=== PATIENT | female | born 1940 | race Caucasian/White ===

== ENCOUNTER 2016-12-24 05:24 | Observation (INO) | payer OTHER ==
[~2016-12-24] VITALS: Ht 162.6 cm; Wt 88.6 kg
[~2016-12-24 05:24] MED LIST: ASPI-110 PO; ATOR20TA15 PO; BENZ1CAP8 PO; CHOL5000 PO; DONE5TAB7 PO; GABA600T PO; GLIM4TAB PO; KRIL500C2 PO; LEVO150T7 PO; LOSA100T PO; MEMA1TAB PO; METF500T PO; NAPR1TAB98 PO; NAPR500 PO; OMEP20TA PO; OXYB5TAB10 PO; TRAZ100T6 PO; VITA10002 PO; VITA150T PO
[2016-12-24] MEDS ORDERED: SODIUM CHLORID 0.9% 500 ML IV PRN (05:45)
[2016-12-24] MEDS ORDERED: ceFAZolin 2 GM PREMIX 50 ML IV SCH (05:45)
[2016-12-24] MEDS ORDERED: METOPROLOL TARTRATE 25 MG TAB PO PRN (05:45)
[2016-12-24] MEDS ORDERED: INSULIN HUMAN REGULAR 1,000 UNITS/10 ML VIAL SQ PRN (05:45)
[2016-12-24] MEDS ORDERED: LACTATED RINGER'S 1000 ML IV PRN (05:45)
[2016-12-24] MEDS ORDERED: CHLORHEXIDINE GLUCONATE 2 % 1 PACK (2 CLOTHS) TOPICAL PRN (05:45)
[2016-12-24 06:22] VITALS: BP 146/73; PULSE 79; RESP 20; TEMP 97.6; O2SAT 93
[2016-12-24] MEDS ORDERED: HEPARIN SODIUM - SQ 10,000 UNITS/ML VIAL SQ SCH (06:30)
[2016-12-24] MEDS ORDERED: ACETAMINOPHEN 1000 MG/100 ML VIAL IV ONE (07:12)
[2016-12-24] MEDS ORDERED: ARTIFICIAL TEARS OPTH OINT 3.5 APPLIC/3.5 GM TUBO ONE (07:12)
[2016-12-24] MEDS ORDERED: HYDROmorphone HCL PF 2 MG/ML VIAL ONE (07:12)
[2016-12-24] MEDS ORDERED: SUGAMMADEX SODIUM 200 MG/2 ML VIAL IV PUSH ONE ×2 (07:12)
[2016-12-24] MEDS ORDERED: DEXAMETHASONE SOD PHOS 4 MG/ML VIAL ONE (07:13)
[2016-12-24] MEDS ORDERED: fentaNYL CITRATE 250 MCG/5 ML AMP ONE ×2 (07:13→11:00)
[2016-12-24] MEDS ORDERED: MIDAZOLAM HCL 2 MG/2 ML VIAL ONE (07:13)
[2016-12-24] MEDS ORDERED: LIDOCAINE 1%/EPINEPHrine 1:100,000 SOLN 30 ML VIAL INFIL ONE (08:00)
[2016-12-24] MEDS ORDERED: METHYLENE BLUE 10 MG/ML VIAL PO ONE (09:44)
[2016-12-24] MEDS ORDERED: NAPROXEN SODIUM PO PRN (10:45)
[2016-12-24] MEDS ORDERED: oxyCODONE/ACETAMINOPHEN 5 MG/325 MG TAB PO PRN (10:45)
[2016-12-24] MEDS ORDERED: ONDANSETRON HCL 4 MG/2 ML VIAL IVP PRN (10:45)
[2016-12-24] MEDS ORDERED: DIPHENHYDRAMINE PO PRN (10:45)
[2016-12-24] MEDS ORDERED: diphenhydrAMINE HCL 25 MG CAP PO PRN (10:45)
[2016-12-24] MEDS ORDERED: LORazepam 0.5 MG TAB PO PRN (10:45)
[2016-12-24] MEDS ORDERED: BENZONATATE 100 MG CAP PO PRN (10:45)
[2016-12-24] MEDS ORDERED: SODIUM CHLORIDE 0.9% FLUSH 10 ML FLUSH IV FLUSH PRN (10:45)
[2016-12-24] MEDS ORDERED: DO NOT ADM ANY ANTICOAGULANT DRUGS PRN (10:46)
[2016-12-24] MEDS: INSULIN NovoLIN REGULAR SUPPLEMENTAL SCALE SQ SCH ×3 (11:00→20:37)
[2016-12-24] MEDS ORDERED: *MEPERIDINE 25 MG INJ VIAL PERIprocedural Use ONLY ONE (11:06)
[2016-12-24] MEDS: SODIUM CHLOR 0.45% 1000 ML INJ 1,000 ML IV SCH ×2 (11:14→23:03)
[2016-12-24] MEDS ORDERED: DEXTROSE 50% IN WATER 50 ML VIAL(D50) IV PUSH PRN (11:30)
[2016-12-24] MEDS ORDERED: GLUCAGON 1 MG/ML VIAL OTHER PRN (11:30)
[2016-12-24] MEDS ORDERED: KETOROLAC TROMETHAMINE 60 MG/2 ML (IM) VIAL IM ONE (12:00)
[2016-12-24] MEDS ORDERED: NORMOSOL R INJ 1,000 ML IV ONE (12:00)
[2016-12-24] MEDS ORDERED: ePHEDrine/NS 25 MG/5 ML SYR IV ONE (12:00)
[2016-12-24] MEDS ORDERED: ONDANSETRON HCL 4 MG/2 ML VIAL IV PUSH ONE (12:00)
[2016-12-24] MEDS ORDERED: PROPOFOL 200 MG/20 ML AMP IV ONE (12:00)
[2016-12-24] MEDS ORDERED: PHENYLEPH/NS 1000 MCG/10 ML SYR IV ONE (12:00)
[2016-12-24] MEDS: GABAPENTIN 300 MG CAP PO SCH ×2 (14:20→18:15)
[2016-12-24] MEDS: KETOROLAC TROMETHAMINE 30 MG/ML (IVP) VIAL IVP SCH ×3 (14:20→23:28)
[2016-12-24 15:30] VITALS: BP 125/59; PULSE 72; RESP 16; TEMP 97.3; O2SAT 96
[2016-12-24 20:00] VITALS: BP 112/55; PULSE 77; RESP 16; TEMP 98.2; O2SAT 95
[2016-12-24] MEDS: MEMANTINE HCL 5 MG TAB PO SCH (20:39)
[2016-12-24] MEDS: SODIUM CHLORIDE 0.9% FLUSH 10 ML FLUSH IV FLUSH SCH (20:45)
[2016-12-24] MEDS ORDERED: ATORVASTATIN 20 MG TAB PO SCH (21:00)
[2016-12-24] MEDS ORDERED: DONEPEZIL HCL 5 MG TAB PO SCH (21:00)
[2016-12-24] MEDS ORDERED: PANTOPRAZOLE SOD 20 MG DELAYED RELEASE TAB PO SCH (21:00)
[2016-12-24] MEDS ORDERED: OXYBUTYNIN CHLORIDE 5 MG TAB PO SCH (21:00)
[2016-12-24] MEDS ORDERED: traZODone HCL 100 MG TAB PO SCH (21:00)
[2016-12-24] MEDS ORDERED: LOSARTAN 50 MG TAB PO SCH (21:00)
[2016-12-25] VITALS: BP 105/53; PULSE 69; RESP 16; TEMP 98.5; O2SAT 96
[2016-12-25 04:00] VITALS: BP 101/59; PULSE 59; RESP 15; TEMP 96.4; O2SAT 98
[2016-12-25] MEDS: oxyCODONE/ACETAMINOPHEN 5 MG/325 MG TAB PO PRN ×2 (04:03→12:28)
[2016-12-25] MEDS ORDERED: LEVOTHYROXINE SODIUM 150 MCG TAB PO SCH (06:00)
[2016-12-25] MEDS: KETOROLAC TROMETHAMINE 30 MG/ML (IVP) VIAL IVP SCH (06:12)
[2016-12-25] MEDS: INSULIN NovoLIN REGULAR SUPPLEMENTAL SCALE SQ SCH ×2 (06:15→11:00)
[2016-12-25] MEDS ORDERED: OXYC1TAB63 PO (06:40)
[2016-12-25 08:01] VITALS: O2SAT 98
[2016-12-25] MEDS: MEMANTINE HCL 5 MG TAB PO SCH (08:02)
[2016-12-25] MEDS: GABAPENTIN 300 MG CAP PO SCH (08:03)
[2016-12-25] MEDS: SODIUM CHLORIDE 0.9% FLUSH 10 ML FLUSH IV FLUSH SCH (08:03)
[2016-12-25 08:15] LABS: AUTOMATED NEUTROPHIL # 6.1 TH/MM3 (1.8-7.7); BASOPHIL % 0.1 % (0.0-2.0); EOSINOPHIL # 0.1 TH/MM3 (0-0.4); EOSINOPHIL % 0.8 % (0.0-4.0); HEMATOCRIT 31.3 % (35.0-46.0); HEMO FLAGS DIFF FINAL; LYMPHOCYTE # 2.5 TH/MM3 (1.0-4.8); MEAN CELL VOLUME 85.2 FL (80.0-100.0); MEAN CORPUSCULAR HEMOGLOBIN 27.4 PG (27.0-34.0); MEAN CORPUSCULAR HGB CONC 32.2 % (32.0-36.0); MONO % 7.7 % (0.0-8.0); NEUT % 64.4 % (16.0-70.0); PLATELET COUNT 177 TH/MM3 (150-450); RED BLOOD COUNT 3.68 MIL/MM3 (4.00-5.30); RED CELL DISTRIBUTION WIDTH 15.6 % (11.6-17.2); WHITE BLOOD COUNT 9.4 TH/MM3 (4.0-11.0)
[2016-12-25 08:34] LABS: BICARBONATE 31.5 MEQ/L (21.0-32.0); POTASSIUM 3.9 MEQ/L (3.5-5.1)
[2016-12-25 09:00] VITALS: BP 108/55; PULSE 65; RESP 16; TEMP 96.2; O2SAT 94
--- NOTE | 2016-12-26 18:21 | MP ---
cc: AMARIS SIU MD, JULIE D. MD SEEGOBIN, AMANDA L. DATE OF SURGERY 12/24/16 PREOPERATIVE DIAGNOSIS Pelvic mass, multiple uterine masses, left pelvic pain. Chronic vulvar pruritus with thinning of the labia. POSTOPERATIVE DIAGNOSIS Pelvic mass, multiple uterine masses, left pelvic pain but left retroperitonealized left ovarian cystadenoma, left ureteral dilation, pelvic adhesions, uterine leiomyomas, endometrial polyp. Chronic vulvar pruritus with thinning of the labia. PROCEDURE Robotic-assisted laparoscopic hysterectomy, bilateral salpingo-oophorectomy, lysis of pelvic adhesions, left ureteral lysis. Vulvar biopsy. SURGEON Debbi Siu MD [employer] surgical first assistant ANESTHESIA General endotracheal anesthesia ESTIMATED BLOOD LOSS 100 mL IV FLUIDS 1400 mL URINE OUTPUT 600 mL HISTORY A 76-year-old female found on exam and imaging to have approximately 6 cm complex mass against the left pelvic sidewall. The uterus itself was prominent and had some nodules that were radiographically suggestive of leiomyomas. There was also a thickening to the endometrial stripe. She was complaining of left pelvic pain. She was counseled regarding options and was in favor of definitive surgical management. Irrespective of the pathology, she wanted complete hysterectomy in addition to removing both tubes and ovaries. She is seen again in the preop holding area where the findings are again discussed. She is in agreement with complete hysterectomy bilateral salpingo-oophorectomy and understands there may be staging biopsies recommended if the findings are not benign. FINDINGS The uterus was small sounding to 6 cm, but there was a fundal fibroid approximately 4 cm in diameter. Right tube and ovary grossly appeared normal. The left ovary was approximately 6 cm, was complex in nature and essentially completely retroperitonealized with adjacent colon overlying it with compression on the left ureter with dilation to the left ureter. Also noted were extensive diverticulum in the lower colon with adhesions in the pelvis against the left pelvic sidewall and cul-de-sac suggestive of probable prior diverticulitis. No evidence of active diverticulitis at the time of surgery. Peritoneal cavity was normal in that there were no implants. The liver diaphragm edges were smooth. The omentum, large and small bowel and mesentery grossly appeared normal. Frozen section analysis of the left ovary shows it to be consistent with a benign cystadenoma, benign-appearing leiomyomas and a benign-appearing endometrial polyp. STATEMENT OF COMPLEXITY Complexity of this case was increased due to extensive pelvic adhesions. The retroperitonealized and scarred in left ovary requiring significant amount of additional time to lyse adhesions, mobilize the ovary to free the ureter along its course in the pelvis to restore normal anatomy and accomplish surgical objectives. Modifier should be applied accordingly. PROCEDURE IN DETAIL The patient taken to operating room placed in dorsal lithotomy position after general endotracheal anesthesia was administered. Time-out was undertaken. She was identified by sight recognition and hospital ID [email or web address] and the proposed procedure was reviewed and confirmed. She was carefully positioned in padded Jaime stirrups. Her arms were padded and secured to the sides. She was further secured to the operating table with egg crate padding and tape in across chest over the shoulder fashion. All sites were noted be properly aligned with no malalignments or pressure points. She was prepped, draped below the waist, placed in high lithotomy position. Cervix was grasped, uterine cavity sounded. Cervix dilated and a standard V-Care manipulator was inserted and secured in usual fashion. Geller catheter placed in the bladder. She was returned to low lithotomy position. We completed draping in anticipation of laparoscopy, confirmed that an orogastric tube was in the stomach on suction and, with manual elevation of the abdominal wall and direct laparoscopic visualization, 5 mm cannula was introduced into the left upper quadrant and then atraumatic entry was confirmed as carbon dioxide gas was insufflated. A 12 mm cannula was placed in the midline above the umbilicus, 8 mm cannula in the right upper quadrant and left lateral quadrant and the original 5 exchanged for an 8 mm cannula. She was placed in steep Trendelenburg position. Peritoneal washings were obtained for cytology. Anatomy was surveyed with findings as described above. The small bowel was folded back on its mesenteric root and three Ray-Amy sponges were placed around the root of the small bowel mesentery. Robotic system brought into the operative field and attached in the usual fashion. Monopolar scissors, fenestrated bipolar forceps and Prograsp manipulators placed in arms #1, 2 and 3 respectively and I took my place at the surgeon's console. Right round ligament isolated, cauterized, transected. The anterior and posterior leafs of the broad ligament were opened. The right ureter was identified. The right infundibulopelvic ligament was isolated. The intervening peritoneum was opened. The infundibulopelvic ligament was dissected to the level of the pelvic brim where it was cauterized and transected. Vesicouterine peritoneum dissected off the right side of the uterus and cervix. Right peritoneum was dissected posteriorly. The right uterine vessels were skeletonized, cauterized and transected as were the cardinal, paracervical and uterosacral ligaments. Attention was directed toward the left side. Lysis of adhesions was carried out and a retroperitoneal entry was made as the left round ligament was isolated, cauterized and transected. Sharp dissection was used to free the adhesions and free the overlying peritoneum from the mass to mobilize it as the left ureter was identified and the left infundibulopelvic ligament was isolated. The intervening peritoneum was opened. The infundibulopelvic ligament was dissected proximally above the pelvic brim where it was cauterized and transected. Additional lysis of adhesion were used to mobilize the colon and to free the adhesions in the cul-de-sac circumferentially take down adhesions until the left utero-ovarian ligament was isolated which was cauterized and transected thereby removing the left tube and ovary which were placed in the right pericolic gutter for later retrieval. Completion of dissection of the bladder flap was carried out on the left and the left posterior was extended behind the uterus and cervix. The left uterine vessels were skeletonized, cauterized and transected as were the cardinal, paracervical and uterosacral ligaments. Circumferential colpotomy was carried out the cervix from the upper vagina. The specimen was withdrawn transvaginally which included uterus, cervix and the attached right tube and ovary. It should be noted, however, that prior to delivery of the specimen the large posterior fundal fibroid was shelled out using sharp dissection and blunt dissection and this leiomyoma was placed in the right pericolic gutter for later retrieval that help facilitate transvaginal delivery of the uterine specimen. A 12 cm EndoCatch bag was introduced transvaginally and the left ovarian mass and the resected leiomyoma were placed in the bag and delivered transvaginally, sent for pathology with benign findings as described above. Instruments one and three exchanged for needle drivers as a 0 Vicryl suture was introduced. Vaginal cuff was closed starting at the left corner, full-thickness closure, including the posterior uterosacral ligament, posterior peritoneum tied via instrument tie and the closure was held on traction with running continuous full-thickness closure across the vaginal cuff where it was carried to the contralateral corner, fixed, secured in similar fashion, tied via instrument tie. The needle was cut and removed. Inspection confirmed good peristalsis of the ureters bilaterally. The left ureter was completely mobilized along its course in the pelvis. The integrity of the bladder was checked by filling the bladder with saline dyed with methylene blue. It distended nicely under pressure. No thin areas of the bladder, no visible blue areas and certainly no extravasation of dye and a good margin between the edge of the bladder and the vaginal cuff suture line and the bladder was drained. Pelvis was thoroughly irrigated. Small bleeders rendered hemostatic with bipolar cautery. Hemostatic Calros was placed across the vaginal cuff in lateral pelvic dissection areas and it was felt that all reasonable surgical objectives had been completed. Robotic instruments were removed. Robotic system was disengaged from the operative field. I reentered the bedside under sterile condition. Under laparoscopic visibility, each of the three Ray-Amy sponges that were placed in the peritoneal cavity were removed individually through the 12-mm cannula. Each were inspected and noted to be removed in their entirety. Visual inspection confirmed no remaining foreign objects in the peritoneal cavity. Preliminary counts were correct. There was good hemostasis and the 12 mm fascial defect was closed with 0 Vicryl sutures using a needle pass apparatus. They were tied securely which rendered the fascia completely airtight and hemostatic. The remaining cannulas were withdrawn. Carbon dioxide gas was removed. 3-0 Vicryl subcutaneous, 3-0 Vicryl subcuticular and Steri-Strips were used to close these incisions. She was returned to dorsal lithotomy position. Pelvic exam confirmed the vaginal cuff was well supported, hemostatic. However, with atrophic changes throughout the vagina there is superficial irritation and mild bleeding due to that irritation with no active bleeding. Carlos hemostatic agent was placed in the vaginal canal rendering that hemostatic. On the vulva as also discussed preoperatively there was thinning of the labia and some chronic irritation suggestive of possible lichen sclerosis or another chronic dermatologic condition and a 3-mm punch biopsy was obtained from the 7 o'clock position of the right labia minora rendered hemostatic with a single 3-0 Vicryl suture. Pelvic exam confirmed there were no remaining foreign objects in the vagina. Preliminary and final counts were correct. She was returned to dorsal supine position and pending reversal of anesthesia when I left the operating room to precede her to the Post Anesthesia Care Unit. MD JUN Merrill/ /10:59 AM /5:40 PM
--- NOTE | 2016-12-29 13:12 | MD ---
cc: CATARINA WARREN DUMONT KELLY L. MD SCHNEIDER, JULIE D. MD ADMISSION DATE: 12/24/2016 DISCHARGE DATE: 12/25/2016 PROCEDURE 12/24/2016 - Robotic-assisted laparoscopic hysterectomy bilateral salpingo-oophorectomy for resection of a left adnexal mass and the uterine masses. PRELIMINARY PATHOLOGY Left ovarian cystadenoma, uterine leiomyomas and endometrial polyp. HOSPITAL COURSE She did well during early postop recovery, tolerated oral intake. Geller catheter removed, voiding pending, hemodynamically stable. Ins and outs 2744/1475. Labs pending at the time of this dictation. PHYSICAL EXAMINATION VITAL SIGNS: Afebrile, pulse 59-89, respirations 15-19, blood pressure 101-127/55-59, O2 saturations greater than or equal to 95%. GENERAL: Alert and oriented x 3, in no acute distress. LUNGS: Clear. Basilar rales mild. CARDIOVASCULAR: Regular rate and rhythm. ABDOMEN: Soft. Incisions clean and dry. STONE GRADER: No bleeding. EXTREMITIES: Nontender. ASSESSMENT Postop day #1 doing well in early postop. Preliminary findings, preliminary pathology discussed. Activities and restrictions reviewed. Questions were answered. She expressed good understanding. PLAN Anticipate discharge to home. She is to resume her prior medications. She will have a prescription for Percocet. She is to call our office to set up a followup appointment in approximately two weeks or should she have any questions or problems between now the time of followup. MD JUN Merrill/SUN /6:41 AM /1:02 PM
== END 2016-12-25 13:05 | disposition home or self-care (01) ==
LOC: HSDC 05:24 → HSDI 10:39 → HOCA 15:33
PROVIDERS: ADMIT Obstetrics & Gynecology Gynecologic Oncology; ATTEND Obstetrics & Gynecology Gynecologic Oncology
DX: D27.1 Benign neoplasm of left ovary (principal); N84.0 Polyp of corpus uteri; N85.8 Other specified noninflammatory disorders of uterus; D25.9 Leiomyoma of uterus, unspecified; R10.2 Pelvic and perineal pain; L29.9 Pruritus, unspecified; J44.9 Chronic obstructive pulmonary disease, unspecified; E07.9 Disorder of thyroid, unspecified; E11.9 Type 2 diabetes mellitus without complications; K21.9 Gastro-esophageal reflux disease without esophagitis; Z80.9 Family history of malignant neoplasm, unspecified; Z79.899 Other long term (current) drug therapy; Z79.84 Long term (current) use of oral hypoglycemic drugs
CPT/HCPCS: 00840; 56605; 58571; 80048; 82948; 85025; 86850; 86900; 86901; 88112; 88305; 88307; 88311; 88331; 94150; G0378; J0131; J0690; J1100; J1170; J1644; J1885; J2175; J2250; J2370; J2405; J3010; J7120